=== PATIENT | female | born 1940 | race Caucasian/White ===

== ENCOUNTER 2019-02-22 07:26 | Observation (INO) | payer OTHER, MEDICARE ==
[2019-02-22 07:47] LABS: #Basophils 0.1 thou/uL (0.0-0.2); #Eosinphils 0.2 thou/uL (0.0-0.7); #Lymphocytes 2.2 thou/uL (1.20-3.40); #Monocytes 0.9 thou/uL (0.11-0.59); %Basophils 1.1 % (0.0-1.0); %Eosinophils 2.8 % (0.0-10.0); %Lymphocytes 29.6 % (21.0-51.0); %Neutrophils 54.5 % (42.0-75.0); Mean Corpuscular HGB CONC 33.5 g/dL (32.0-36.0); Mean Corpuscular Hemoglobin 31.2 pg (27.0-31.0); Mean Platelet Volume 8.2 fL (7.4-10.4); Platelet Count 206 thou/uL (130-400); RBC Distribution Width 12.6 % (11.5-14.5); Red Blood Cell (RBC) Count 4.48 mill/uL (4.20-5.40); White Blood Cell (WBC) Count 7.3 thou/uL (4.8-10.8)
--- NOTE | 2019-02-22 07:59 | CT ---
CT Brain WO Con: 02/22/2019 7:36 AM CLINICAL HISTORY: Level 2 stroke protocol; history of slurred speech and fatigue. IMAGING TECHNIQUE: Multiple CT images were obtained of the brain without IV contrast. COMPARISON: None. FINDINGS: Infarct: No acute infarct is evident. There is mild chronic small vessel white matter ischemic jasso e. There is a remote lacunar infarct involving the left globus pallidus. Hemorrhage: None.. Hydrocephalus: None.. Basal cisterns: Normal.. Cerebral parenchyma: Normal.. Midline shift: None.. Cerebellum: Normal. Brainstem: Normal. OTHER: Calvarium: Intact.. Visualized Paranasal sinuses: Clear.. Extracranial soft tissues:Normal. IMPRESSION: No acute intracranial abnormality. Mild chronic small vessel white matter ischemic change. Findings called to Dr. Yates at 7:55 AM on February 22, 2019.
[2019-02-22 08:01] LABS: ALT (SGPT) 14 U/L (8-55); AST (SGOT) 19 U/L (5-34); Albumin 3.7 g/dL (3.4-4.8); Alkaline Phosphatase 56 U/L (40-110); Anion Gap 11 mmol/L (10-20); BUN (Urea Nitrogen) 27 mg/dL (9.8-20.1); Bilirubin, Total 0.3 mg/dL (0.2-1.2); Calc. Creatinine Clearance 0 mL/min (70-130); Carbon Dioxide 25 mmol/L (23-31); Chloride 106 mmol/L (98-107); Estimated GFR-MDRD 55; Globulin 3.2 g/dL (2.4-3.5); Glucose 103 mg/dL (83-110); Potassium 3.9 mmol/L (3.5-5.1); Protein, Total 6.9 g/dL (6.0-8.3); Sodium 138 mmol/L (136-145)
--- NOTE | 2019-02-22 08:01 | RAD ---
Chest AP view INDICATION: Altered mental status and weakness with slurred speech COMPARISON: April 23, 2017 from [facility] FINDINGS: Lungs:There is stable calcified granuloma in the left upper lobe. No consolidation or other airspace opacity is demonstrated. Cardiac silhouette:The cardiomediastinal silhouette appears within normal limits. Pulmonary vasculature:Normal Pleural spaces:No pleural effusion or pneumothorax is demonstrated. Upper abdomen:No abnormality seen. Osseous structures: Advanced left glenohumeral osteoarthrosis. Right glenohumeral total shoulder pros thesis with distal right clavicle excision. Additional findings:None. IMPRESSION: No acute cardiopulmonary abnormality.
[2019-02-22 08:21] LABS: CKMB 1.1 ng/mL (0-6.6)
[2019-02-22 08:40] LABS: Bacteria/HPF None Seen HPF (None Seen); Bilirubin Negative (Negative); Blood, Urine 1+ (Negative); Clarity Clear (Clear); Glucose, Urine (Dipstick) Normal (Negative); Leukocyte Negative Leu/uL (Negative); Nitrite Negative (Negative); Protein, Urine (Dipstick) Negative (Neg-Trace); Squamous Epithelial 0-3 HPF (0-3); Urobilinogen Normal mg/dL (Less than 2); WBC/HPF 0-3 HPF (0-3)
--- NOTE | 2019-02-22 09:41 | PDOC.FPRHP ---
- History of Present Illness Chief Complaint: generalized weakness History of Present Illness: Pt is 78 yo F here complaining of generalized weakness especially in her legs which started this AM around 0400 when getting up to urinate. Last known normal was prior to sleeping ~0100. At 0600, family ( and daughters) noticed L side facial drooping, slurred speech, and confusion. Pt does not remember these events. Came to ED, symptoms seemed to start resolving. Pt denies DICKERSON, chest pain , SOB, and history of HI or stroke or prior TIAs. Notes Worsened acid reflux the past 2 days after eating some bbq chicken. ED Course: EKG, CXR, labs and Head CT performed. No meds given. - Allergies/Adverse Reactions Allergies Allergy/AdvReac Type Severity Reaction Status Date / Time fentanyl Allergy Mild Rash Verified 02/22/19 10:34 - Home Medications Medication Instructions Recorded Confirmed Type Cholecalciferol (Vitamin D3) 5,000 unit PO Q7DAYS 02/22/19 02/22/19 History [Vitamin D] DULoxetine HCl [Duloxetine HCl] 1 capsule PO DAILY 02/22/19 02/22/19 History Fenofibric Acid (Choline) 1 capsule PO DAILY 02/22/19 02/22/19 History [Fenofibric Acid] Hydrochlorothiazide 1 tablet PO DAILY 02/22/19 02/22/19 History Lisinopril 1 tablet PO DAILY 02/22/19 02/22/19 History Meloxicam 7.5 mg PO BID 02/22/19 02/22/19 History Metoprolol Succinate [Toprol XL] 1 tablet PO DAILY 02/22/19 02/22/19 History Oxybutynin Chloride [Oxybutynin 1 tablet PO DAILY 02/22/19 02/22/19 History Chloride ER] Pregabalin 1 capsule PO BID 02/22/19 02/22/19 History Venlafaxine HCl [Venlafaxine HCl 1 capsule PO BID 02/22/19 02/22/19 History ER] Zolpidem Tartrate 0.5 tablet PO HS PRN 02/22/19 02/22/19 History - History PMHx: - breast cancer, 2004, treated w/ radiation - gallbladder cancer, 2010 - skin carcinoma under Left eye - HTN - Fibromyalgia - Arthritis - History of electrocution from falling power line in 1998, leaving her w/ residual "left side weakness" PSHx: - L hip arthroplasty - R shoulder arthroplasty - Lumpectomy of right breast - Rib cage tumor resection, benign - Cholecystectomy - Skin cancer/carcinoma removed on face - Tonsillectomy, age 28 FHx: - Father: dcsd, lung cancer, smoker - Mother: dcsd age 90 - Children: HTN Social: - Never smoker, drinks alcohol 1 time per month, no drugs (had medical marijuana once) - Review of Systems General: denies: fever/chills, weight/appetite/sleep changes Eyes: reports: vision changes ENT: denies: nasal congestion Respiratory: denies: cough, shortness of breath Cardiovascular: denies: chest pain, palpitation, edema Gastrointestinal: denies: nausea, vomiting, diarrhea, constipation Genitourinary: reports: incontinence (she "leaks" at times, hx of 5 vaginal deliveries). denies: dysuria Skin: denies: rashes Musculoskeletal: reports: arthritis/arthralgias Neurological: reports: weakness (see hpi). denies: numbness, syncope, seizure Psychological: reports: depression (no diagnosed depression, feels down at times ). denies: anxiety - Vital signs BP: 150/80 HR: 71 RR: 14-20 Tmax: 97.6 Pox: 95% on RA - Physical Exam Constitutional: NAD -Constitutional: awake, alert, oriented, but dozes off and sleepy appearing during interview HEENT: normocephalic and atraumatic, PERRLA, EOMI, conjunctiva clear, no scleral icterus, MMM, oropharynx clear Neck: supple, trachea midline, no thyromegaly Heart: RRR, normal S1/S2, no murmurs/rubs/gallops Lungs: CTAB, no respiratory distress, no wheezing Abdomen: soft, non-tender, bowel sounds present, no masses/distention Musculoskeletal: normal structure, normal tone Neurological: no focal deficit, CN II-XII intact, normal sensation -Neurological: pt's eyes sluggish when trying to follow rapid finger movements, AxO x3, answering incorrectly at times but corrects self Skin: no rash/lesions Heme/Lymphatic: no unusual bruising or bleeding Psychiatric: normal mood and affect FMR H&P: Results - Labs Result Diagrams: 02/22/19 07:35 02/22/19 07:35 Lab results: WBC 7.3 thou/uL (4.8-10.8) 02/22/19 07:35 Hgb 14.0 g/dL (12.0-16.0) 02/22/19 07:35 Hct 41.7 % (36.0-47.0) 02/22/19 07:35 MCV 93.0 fL (78.0-98.0) 02/22/19 07:35 Plt Count 206 thou/uL (130-400) 02/22/19 07:35 Neutrophils % 54.5 % (42.0-75.0) 02/22/19 07:35 Sodium 138 mmol/L (136-145) 02/22/19 07:35 Potassium 3.9 mmol/L (3.5-5.1) 02/22/19 07:35 Chloride 106 mmol/L (98-107) 02/22/19 07:35 Carbon Dioxide 25 mmol/L (23-31) 02/22/19 07:35 BUN 27 mg/dL (9.8-20.1) H 02/22/19 07:35 Creatinine 0.99 mg/dL (0.6-1.1) 02/22/19 07:35 Glucose 103 mg/dL (83-110) 02/22/19 07:35 Calcium 9.0 mg/dL (7.8-10.44) 02/22/19 07:35 Total Bilirubin 0.3 mg/dL (0.2-1.2) 02/22/19 07:35 AST 19 U/L (5-34) 02/22/19 07:35 ALT 14 U/L (8-55) 02/22/19 07:35 Alkaline Phosphatase 56 U/L (40-110) 02/22/19 07:35 CK-MB (CK-2) 1.1 ng/mL (0-6.6) 02/22/19 07:35 Serum Total Protein 6.9 g/dL (6.0-8.3) 02/22/19 07:35 Albumin 3.7 g/dL (3.4-4.8) 02/22/19 07:35 Urine Ketones Negative mg/dL (Negative) 02/22/19 08:24 Urine Blood 1+ (Negative) A 02/22/19 08:24 Urine Nitrite Negative (Negative) 02/22/19 08:24 Ur Leukocyte Esterase Negative Yesi/uL (Negative) 02/22/19 08:24 Urine RBC 11-20 HPF (0-3) A 02/22/19 08:24 Urine WBC 0-3 HPF (0-3) 02/22/19 08:24 Ur Squamous Epith Cells 0-3 HPF (0-3) 02/22/19 08:24 Urine Bacteria None Seen HPF (None Seen) 02/22/19 08:24 FMR H&P: A/P - Problem List (1) TIA (transient ischemic attack) Current Visit: No Status: Acute Code(s): G45.9 - TRANSIENT CEREBRAL ISCHEMIC ATTACK, UNSPECIFIED (2) HTN (hypertension) Current Visit: No Status: Chronic Code(s): I10 - ESSENTIAL (PRIMARY) HYPERTENSION (3) Fibromyalgia Current Visit: No Status: Chronic - Plan 78-yo woman presenting for symptoms concerning of TIA: TIA, suspected vs. CVA - MRI brain w/o contrast today - May have heart healthy diet pending passing of bedside swallow. Minimal concern for aspiration risk. - Neuro checks per routine HTN - continue ASA 81, now dose - add atorvastatin 40mg qhs - hold HTN meds until after MRI is completed to allow for permissive HTN Hx of Breast Cancer, Gallbladder Cancer - Treated surgically. Radiation for breast. - In remission. Never had chemotherapy - Possibly hypercoagulopathy risk, will anticoagulate Chronic arthritis Fibromyalgia - continue home meds - Consider holding fibromyalgia meds if pt continues to have much confusion and develops encephalopathic picture Code: FULL Diet: Heart Healthy after passing bedside swallow per stroke floor VTE PPx: LVX GI PPx: none Dispo: obs stroke Disposition/LOS: Admit to Obs Stroke. FMR H&P: Upper Level - Plan Date/Time: 02/22/19 0934 INic MD, have evaluated this patient and agree with findings/plan as outlined by digital media intern resident. Pertinent changes/additions are listed here. Inna Tucker is a 78 year old F with a PMH of HTN, Fibromyalgia and Breast cancer s/p lumpectomy and radiation who presented to the ED after onset of generalized weakness, left sided facial droop, confusion morning TUBE BENDER HAND around 0400. Patient was seen normal last night. Patient is unable to recall the events of this morning but states patient woke up around 0400 to go to the restroom. She appeared weak and then she could not get up off the toilet without assistance. She was confused and she later endorses some blurry vision/ double vision out of left eye. Family called EMS and they arrived, gave her aspirin and brought her to the ED. She states that symptoms are slowly started to resolve. CT brain was negative, CXR was negative. Initial trop was 0.033, EKG showed sinus arrhythmia, complete LBBB, left anterior fascicular block, LVH. Unable to determine if this is new or old. Patient denies any fever, chills, chest pain, dyspnea, palpitations, urinary frequency or dysuria. Otherwise, normal CBC, CMP. UA showed 1+ blood, 11-20 rbc, otherwise negative. VSS. Will place patient on obs/stroke for CVA r/o. Ordered Brain MRI. Continue aspirin, start high intensity statin. Consider further imaging including CTA head and neck and echo based on MRI of brain. Please see digital media intern note above for full H&P, which I have reviewed and agree with. Addendum - Attending - Attending Attestation Date/Time: 02/22/19 6418 I personally evaluated the patient and discussed the management with Dr. Rubio /Moises. I agree with the History, Examination, Assessment and Plan documented above with any addition or exceptions noted below. Patient here with acute alternations in her mentation as well as concern for L facial droop and incoordination. Patient last seen normal last night. This morning, she awoke and needed assistance to bathroom x2. During on event around 5am, family noted speech issues, confusion, and possible L facial droop. Those symptoms have currently improved at the time of my evaluation in the ED. Patient had CT brain here that did not show acute hemorrhage. She is overall back to baseline but family does report some continued speech and confusion issues. Patient has a non focal neuological exam at the time of my visit with her. Her labs do not show any major abnormalities. Patient will be observed in the stroke unit. Obtain MRI, risk stratification for vascular disease, Neuro checks, and therapy evals. Start on ASA and escalate therapy as needed based on her risk factors. If MRI negative, this is highly suggestive event of TIA. Will also do base encephalopathy workup and monitor her condition. Anticipate overnight stay. Patient has history of malignancy but CT brain did not reveal any brain lesions.
[2019-02-22] MEDS ORDERED: Ondansetron ODT 4 MG TAB PO PRN (10:23)
[2019-02-22] MEDS ORDERED: Acetaminophen 325 MG TAB PO PRN (10:23)
[2019-02-22] MEDS ORDERED: Calcium Carbonate 500 MG ChewTAB PO PRN (10:23)
[2019-02-22] MEDS ORDERED: Ondansetron PF 4 MG/2 ML Vial IVP PRN ×2 (10:23)
[2019-02-22] MEDS ORDERED: Ondansetron ODT 4 MG TAB SL PRN (10:23)
[2019-02-22] MEDS ORDERED: Aspirin 81 mg Enteric Coated Tablet PO SCH (10:45)
[2019-02-22 11:27] LABS: Troponin I 0.035 ng/mL (< 0.028)
[2019-02-22 12:25] VITALS: BMI 38.1
--- NOTE | 2019-02-22 14:04 | MRI ---
MRI brain noncontrast HISTORY: Altered mental status. TIA. FINDINGS: There is no evidence of acute intracranial hemorrhage or infarct. The ventricles appear nor mal in size, shape and position. Small ill-defined areas of increased FLAIR signal throughout the periventricular white matter of each cerebral hemisphere are consistent with mild chronic ischemic sm all vessel disease. There is no mass effect or shift of midline structures. Visualized paranasal sinuses remain well aerated. IMPRESSION: Mild chronic ischemic small vessel disease. No acute abnormalities are demonstrated.
[2019-02-22 14:49] LABS: Troponin I 0.013 ng/mL (< 0.028)
[2019-02-22] MEDS ORDERED: Atorvastatin Calcium 40 MG TAB PO SCH (21:00)
[2019-02-23 05:24] LABS: Cardiac Risk 3.2 (Less than 4.5)
--- NOTE | 2019-02-23 05:37 | PDOC.FM ---
- Subjective Subjective: Pt denies any neurologic sx this morning. Daughter staying w/ pt states that she feels her symptoms that she was having over the weekend have all resolved. Her confusion is gone and her speech is at her baseline. - Objective Vital Signs & Weight: Vital Signs (12 hours) Temp Pulse Pulse Pulse Resp BP BP 02/23/19 03:30 98.1 F 85 16 02/23/19 03:15 02/22/19 23:30 98.1 F 82 16 02/22/19 19:34 98.3 F 67 16 02/22/19 18:24 73 78 157/76 H 198/89 H BP Pulse Ox 02/23/19 03:30 174/79 H 95 02/23/19 03:15 93 L 02/22/19 23:30 136/73 93 L 02/22/19 19:34 139/71 93 L 02/22/19 18:24 Weight Weight 94.665 kg I&O: 02/21/19 02/22/19 02/23/19 06:59 06:59 06:59 Intake Total 900 Balance 900 Result Diagrams: 02/22/19 07:35 02/22/19 07:35 Phys Exam - Physical Examination Constitutional: NAD HEENT: PERRLA, moist MMs, sclera anicteric Neck: no JVD, full ROM Respiratory: no wheezing, no rales, no rhonchi, clear to auscultation bilateral Cardiovascular: RRR, no significant murmur Gastrointestinal: soft, non-tender Musculoskeletal: no edema, pulses present Neurological: non-focal, normal sensation, moves all 4 limbs Psychiatric: normal affect, A&O x 3 Skin: no rash, cap refill <2 seconds Dx/Plan (1) TIA (transient ischemic attack) Code(s): G45.9 - TRANSIENT CEREBRAL ISCHEMIC ATTACK, UNSPECIFIED Status: Acute (2) Fibromyalgia Status: Chronic (3) HTN (hypertension) Code(s): I10 - ESSENTIAL (PRIMARY) HYPERTENSION Status: Chronic - Plan Plan: TIA, suspected vs. CVA - Passed bedside dysphagia screening - MRI brain - mild chronic ischemic small vessel changes, no acute abnormalities - Diagnosis most consistent w/ TIA - focal neurologic symptoms that resolved without CVA findings on imaging - Neuro checks per routine - Likely DC today HTN - Add atorvastatin 40mg qhs - Resume anti-hypertensives Hx of Breast Cancer, Gallbladder Cancer - Treated surgically. Radiation for breast. - In remission. Never had chemotherapy Chronic arthritis Fibromyalgia - continue home meds - Recommended pt speak with PCP about tapering off of one of her SNRI's Code: FULL Diet: Heart Healthy after passing bedside swallow per stroke floor VTE PPx: LVX GI PPx: none Dispo: obs stroke, likely DC today Addendum - Attending - Attending Attestation Date/Time: 02/23/191910 I personally evaluated the patient and discussed the management with Dr. Overton. I agree with the History, Examination, Assessment and Plan documented above with any addition or exceptions noted below. MRI negative for acute stroke. Getting carotid doppler to further evaluate for stenosis. If negative, will d/c home.
[2019-02-23] MEDS ORDERED: Hydrochlorothiazide 25 MG TAB PO SCH (09:00)
[2019-02-23] MEDS ORDERED: Enoxaparin Sodium 40 MG/0.4 ML SYRINGE SC SCH (09:00)
[2019-02-23] MEDS ORDERED: Lisinopril 10 MG TAB PO SCH (09:00)
[2019-02-23] MEDS ORDERED: Aspirin 81 mg Enteric Coated Tablet PO SCH (09:00)
--- NOTE | 2019-02-23 10:50 | ULT ---
EXAM: Carotid Doppler PROVIDED CLINICAL HISTORY: TIA COMPARISON: None FINDINGS: Grayscale and color Doppler sonography with spectral analysis was performed of the extracranial carot id system bilaterally. There is no evidence for a hemodynamically significant internal carotid artery stenosis by peak systolic velocity or ratio criteria. Antegrade flow is seen in the vertebral arteries. IMPRESSION: No sonographic evidence for a hemodynamically significant internal carotid artery stenosis.
[2019-02-23 11:57] VITALS: BP 175/87; TEMP 98
--- NOTE | 2019-02-24 00:55 | DIS ---
DATE OF ADMISSION: 02/22/2019 DATE OF DISCHARGE: 02/23/2019 ADMITTING ATTENDING: Isael aMrie MD RESIDENT: Tristan Overton DO CONSULTS: None. PROCEDURES PERFORMED: None. PRIMARY DIAGNOSIS: Transient ischemic attack, hypertension, fibromyalgia. SECONDARY DIAGNOSES: History of breast cancer, history of gallbladder cancer, chronic arthritis. DISCHARGE MEDICATIONS: 1. Zolpidem tartrate 10 mg tablets, half tablet at bedtime p.r.n. 2. Venlafaxine 150 mg b.i.d. 3. Pregabalin 100 mg b.i.d. 4. Oxybutynin 10 mg daily. 5. Metoprolol succinate 100 mg daily. 6. Meloxicam 7.5 mg b.i.d. 7. Lisinopril 10 mg daily. 8. Hydrochlorothiazide 25 mg daily. 9. Fenofibric acid 135 mg daily. 10. Duloxetine 30 mg daily. 11. Vitamin D3 of 1000 unit capsule x5 p.o. q.7 days. 12. Aspirin 81 mg daily. 13. Atorvastatin 40 mg at bedtime. HISTORY OF PRESENT ILLNESS AND HOSPITAL COURSE: The patient is a 78-year-old female complaining of generalized weakness, specifically in her legs, started the morning of her admission around 4:00 a.m. when getting up to urinate. The patient was last known normal prior to falling asleep around 1:00 a.m. At 6 in the morning, the patient's family noticed left-sided facial droop with slurred speech and confusion. The patient does not remember these events. The patient was brought to the emergency department and on the way, symptoms started to resolve. The patient denied any headache, chest pain, shortness of breath, or history of previous stroke or TIA. ED workup included EKG, chest x-ray, and labs without any significant findings. Head CT was performed at that time and no acute intracranial abnormality was noted, however, mild chronic small-vessel white matter ischemic changes were seen. The patient was eventually admitted to stroke unit for observation and continued TIA versus stroke rule out. MRI was performed, which was congruent with CT findings of chronic ischemic small vessel changes. Carotid Doppler study was also performed, which showed no sonographic evidence for a hemodynamically significant internal carotid artery stenosis. On the second day of patient's admission, she noted that her symptoms had resolved. The patient's daughter who accompanied her noted that she also felt that the patient was at her baseline with normal speech and no longer acting confused. The patient continued to not recall the incidents the day prior leading up to her admission. The patient was started on atorvastatin 40 mg and 81 mg aspirin daily due to CHADS-VASc score of 17.5. The patient and family were instructed on return precautions and necessity to follow up closely with her PCP on an outpatient basis. DISPOSITION: Stable. DISCHARGE INSTRUCTIONS: 1. Location: Home. 2. Diet: Heart healthy. 3. Activity: As tolerated. No restrictions. 4. Followup: PCP within 7 days. Job ID: [id number]
== END 2019-02-23 13:29 | disposition home or self-care (01) ==
LOC: ERS 07:26 → 2SE 08:50 → ERS 10:13
PROVIDERS: ADMIT Student in an Organized Health Care Education/Training Program; ATTEND Student in an Organized Health Care Education/Training Program
DX: G45.9 Transient cerebral ischemic attack, unspecified (principal); I10 Essential (primary) hypertension; M79.7 Fibromyalgia; M19.90 Unspecified osteoarthritis, unspecified site; Z85.3 Personal history of malignant neoplasm of breast; Z79.1 Long term (current) use of non-steroidal anti-inflammatories (NSAID); Z79.899 Other long term (current) drug therapy; Z88.4 Allergy status to anesthetic agent
CPT/HCPCS: 36415; 36416; 51701; 70450; 70551; 71045; 80053; 80061; 81003; 81015; 82553; 84443; 84484; 85025; 93005; 93880; 96372; A4353; G0378; J1650